=== PATIENT | female | born 1945 | race Caucasian/White ===

== ENCOUNTER 2017-08-09 05:55 | Day surgery (SDC) | payer MEDICARE ==
[~2017-08-09] VITALS: Ht 152.4 cm; Wt 57.2 kg
[~2017-08-09 05:55] MED LIST: ADVAIR DISK2 IN; ADVAIR HFA IN; AMLODIPINE BESYL5 MG PO; AMLODIPINE5 MG PO; ANORO ELLIPTA 61 AER IN; ASPIRIN CHEWABL81 MG PO; ATORVASTATIN CA40 MG PO; BENADRYL 50MG C50 MG PO; BENAZEPRIL5 MG PO; BONIVA150 MG PO; BUPROPION150 M1 PO; BUSPIRONE10 MG PO; CALCIUM CHEL1 CAP OR; CALCIUM PO; CARISOPRODOL350 MG PO; CELECOXIB200 MG; CEPHALEXIN500 MG OR; CEPHALEXIN500 MG PO; CIPRO500 MG OR; CIPROFLOXACN500 MG PO; CLONIDINE0.1 MG PO; COMBIVENT IN; COMBIVENT RESPIMAT IN; DALIRESP500 MCG PO; DIFLUCAN100 MG PO; DIFLUCAN150 MG PO; DOXY-CAPS100 MG OR; ELIMITE60 GM EX; FEXOFENADINE180 MG OR; FLEXERIL PO; FLUCONAZOLE100 MG PO; FLUTICASONE50 MCG; HYDROCHLOROT12.5 MG PO; HYDROCO/APAP1 TA9 PO; HYDROCODONE PO; HYDROCODONE/IBU1 TAB PO; IBU PO; IPRATROPIU0.5 MG/3 M NEB; KEFLEX500 MG PO; LEVAQUIN500 MG PO; LORTAB 1010 MG PO; LOSARTAN POT50 MG PO; MEDDOSEPAK OR; MEDDOSEPAK PO; NEXIUM20 M1 PO; NEXIUM40 M1 OR; ONDANSETRON4 MG PO; OXYCODONE5 M1 OR; OXYCODONE5 M1 PO; PREDNISONE10 MG PO; PREVPAC OR; PROVENTIL0.083 % IN; ROBITUSSIN10 ML PO; SPIRIVA IN; VICODIN1 TAB PO; VICOPROFEN PO; XANAX0.25 MG PO; XANAX0.5 MG PO; XIFAXAN200 MG OR; ZALEPLON5 MG PO; ZANTAC 150 PO; ZOFRAN ODT4 MG PO
[2017-08-09 09:36] VITALS: BP 144/75
== END 2017-08-09 08:23 | disposition home or self-care (01) ==
LOC: ORM 05:55
PROVIDERS: ATTEND Anesthesiology Pain Medicine
PROC: 3E0T33Z Introduction of Anti-inflammatory into Peripheral Nerves and Plexi, Percutaneous Approach (ICD-10-PCS; principal; 2017-08-09)
PROC: 3E0T3BZ Introduction of Anesthetic Agent into Peripheral Nerves and Plexi, Percutaneous Approach (ICD-10-PCS; 2017-08-09)
DX: M54.6 Pain in thoracic spine (principal); M54.5 Low back pain

== ENCOUNTER → 2017-08-23 | Day surgery (SDC) | payer MEDICARE ==
[2017-08-23 07:39] VITALS: BP 151/65
== END ==
LOC: ORM 06:00
PROVIDERS: ATTEND Anesthesiology Pain Medicine
PROC: 3E0T33Z Introduction of Anti-inflammatory into Peripheral Nerves and Plexi, Percutaneous Approach (ICD-10-PCS; principal; 2017-08-23)
PROC: 3E0T3BZ Introduction of Anesthetic Agent into Peripheral Nerves and Plexi, Percutaneous Approach (ICD-10-PCS; 2017-08-23)
DX: M54.6 Pain in thoracic spine (principal)

== ENCOUNTER 2017-09-13 07:34 | Day surgery (SDC) | payer MEDICARE ==
[~2017-09-13] VITALS: Ht 152.4 cm; Wt 55.3 kg
[2017-09-13] MEDS ORDERED: POTASSIUM GLUCONATE PO (07:52)
[2017-09-13] MEDS ORDERED: PREDNISONE10 MG PO (07:52)
[2017-09-13 09:42] VITALS: BP 136/69
== END 2017-09-13 10:20 | disposition home or self-care (01) ==
LOC: ORM 07:34
PROVIDERS: ATTEND Anesthesiology Pain Medicine
PROC: 01583ZZ Destruction of Thoracic Nerve, Percutaneous Approach (ICD-10-PCS; principal; 2017-09-13)
DX: M54.6 Pain in thoracic spine (principal); M12.9 Arthropathy, unspecified

== ENCOUNTER 2017-09-27 08:55 | Day surgery (SDC) | payer MEDICARE ==
[~2017-09-27] VITALS: Ht 152.4 cm; Wt 54.9 kg
[~2017-09-27 08:55] MED LIST changes: +POTASSIUM GLUCONATE PO
[2017-09-27 13:20] VITALS: BP 127/63
== END 2017-09-27 12:15 | disposition home or self-care (01) ==
LOC: ORM 08:55
PROVIDERS: ATTEND Anesthesiology Pain Medicine
PROC: 3E0T3TZ Introduction of Destructive Agent into Peripheral Nerves and Plexi, Percutaneous Approach (ICD-10-PCS; principal; 2017-09-27)
DX: M54.6 Pain in thoracic spine (principal); M12.9 Arthropathy, unspecified

== ENCOUNTER 2017-12-13 06:58 | Day surgery (SDC) | payer MEDICARE ==
[2017-12-13 09:49] VITALS: BP 208/96
== END 2017-12-13 09:20 | disposition home or self-care (01) ==
LOC: ORM 06:58
PROVIDERS: ATTEND Anesthesiology Pain Medicine
PROC: 3E0R33Z Introduction of Anti-inflammatory into Spinal Canal, Percutaneous Approach (ICD-10-PCS; principal; 2017-12-13)
PROC: B01B1ZZ Fluoroscopy of Spinal Cord using Low Osmolar Contrast (ICD-10-PCS; 2017-12-13)
DX: M51.16 Intervertebral disc disorders with radiculopathy, lumbar region (principal); M48.062 Spinal stenosis, lumbar region with neurogenic claudication
CPT/HCPCS: Q9967

== ENCOUNTER 2017-12-27 06:40 | Day surgery (SDC) | payer MEDICARE ==
[~2017-12-27] VITALS: Ht 152.4 cm; Wt 55.3 kg
[2017-12-27 08:43] VITALS: BP 144/65
[2018-01-09] MEDS ORDERED: SINGULAIR10 MG PO (07:59)
[2018-01-09] MEDS ORDERED: MYRBETRIQ25 MG (07:59)
== END 2017-12-27 09:15 | disposition home or self-care (01) ==
LOC: ORM 06:40
PROVIDERS: ATTEND Anesthesiology Pain Medicine
PROC: 3E0R33Z Introduction of Anti-inflammatory into Spinal Canal, Percutaneous Approach (ICD-10-PCS; principal; 2017-12-27)
DX: M51.16 Intervertebral disc disorders with radiculopathy, lumbar region (principal); M48.062 Spinal stenosis, lumbar region with neurogenic claudication; M54.5 Low back pain; M79.605 Pain in left leg
CPT/HCPCS: Q9967

== ENCOUNTER 2018-02-10 20:35 | Emergency (ER) | payer MEDICARE ==
[~2018-02-10] VITALS: Ht 152.4 cm; Wt 56.8 kg
[~2018-02-10 20:35] MED LIST changes: +MYRBETRIQ25 MG; +SINGULAIR10 MG PO
[2018-02-10 21:35] LABS: IMMATURE GRANULOCYTES 0.2 % (0.0-1.0); MEAN CELL VOLUME 93.1 fL CALC (80.0-100.0); MEAN CORPUSCULAR HGB 31.5 pG CALC (26.0-32.0); MEAN CORPUSCULAR HGB CONC 33.8 g/L CALC (32.0-36.0); NEUT# 3.98 thou/uL (2.00-7.15); RED BLOOD COUNT 4.19 mill/uL (4.20-5.60); RED CELL DISTRI WIDTH 12.9 % (11.5-15.5)
[2018-02-10 21:39] LABS: HEMOGLOBIN 13.2 g/dl (12.0-16.0)
[2018-02-10 21:42] LABS: URINE BILIRUBIN - DIPSTICK NEGATIVE (NEGATIVE); URINE BLOOD DIPSTICK NEGATIVE (NEGATIVE); URINE COLOR YELLOW; URINE GLUCOSE - DIPSTICK NEGATIVE (NEGATIVE); URINE KETONE NEGATIVE (NEGATIVE); URINE LEUK ESTERASE NEGATIVE (NEGATIVE); URINE NITRITE - DIPSTICK NEGATIVE (Negative); URINE PH 5.5 (4.5-8.0); URINE PROTEIN - DIPSTICK NEGATIVE (NEG-TRACE); URINE SPECIFIC GRAVITY >=1.030; URINE UROBILINOGEN - DIPSTICK 0.2 E.U./dL (0.2)
[2018-02-10 21:46] LABS: URINE CLARITY CLEAR
[2018-02-10 21:50] LABS: ALBUMIN 4.4 g/dL (3.2-5.0); ALKALINE PHOSPHATASE 62 u/l (38-126); ANION GAP 14 (6-22 (CALC)); BILIRUBIN, TOTAL 1.1 mg/dL (0.0-1.4); BUN 14 mg/dL (8-23); BUN/CREATININE RATIO 18 (12-20 (CALC)); CARBON DIOXIDE 24 mmol/l (22-30); CHLORIDE 105 mmol/l (95-108); CREATININE 0.8 mg/dL (0.5-1.0); GFR > 60 ML/MIN (>=60 (CALC)); GFR FOR AFR.AMER. > 60 ML/MIN (>=60 (CALC)); POTASSIUM 3.6 mmol/l (3.5-5.1); SGOT/AST 22 u/l (9-36); SGPT/ALT 34 u/l (11-66); SODIUM 140 mmol/l (137-146); TOTAL PROTEIN 7.4 g/dL (6.3-8.2)
[2018-02-10 22:02] LABS: MYOGLOBIN 54 ng/mL (0 - 62)
[2018-02-10 23:27] VITALS: BP 140/73
== END 2018-02-10 23:38 | disposition home or self-care (01) ==
LOC: ED 20:35
PROVIDERS: Emergency Medicine
DX: R60.0 Localized edema (principal); I10 Essential (primary) hypertension; M79.89 Other specified soft tissue disorders; M79.605 Pain in left leg; M79.604 Pain in right leg; R94.31 Abnormal electrocardiogram [ECG] [EKG]

== ENCOUNTER 2018-06-27 06:36 | Day surgery (SDC) | payer MEDICARE ==
[~2018-06-27] VITALS: Ht 152.4 cm; Wt 56.7 kg
[~2018-06-27 06:36] MED LIST changes: +COQ10100 MG PO; +KLOR-CON SPRINK8 MEQ PO; +MAGNESIUM250 M1 PO; +PREDNISONE20 MG PO; +TIZANIDINE2 MG PO; +TRAZODONE HCL100 MG PO
[2018-06-27 08:31] VITALS: BP 125/57
== END 2018-06-27 08:45 | disposition home or self-care (01) ==
LOC: ENDO 06:36 → ORM 09:30 → ENDO 09:30
PROVIDERS: ATTEND Surgery
PROC: 0DBL8ZX Excision of Transverse Colon, Via Natural or Artificial Opening Endoscopic, Diagnostic (ICD-10-PCS; principal; 2018-06-27)
DX: R19.5 Other fecal abnormalities (principal); K59.00 Constipation, unspecified; K63.5 Polyp of colon; K57.30 Diverticulosis of large intestine without perforation or abscess without bleeding

== ENCOUNTER 2018-10-10 21:01 | Emergency (ER) | payer MEDICARE ==
[~2018-10-10] VITALS: Ht 152.4 cm; Wt 56.0 kg
[2018-10-10 21:46] LABS: IMMATURE GRANULOCYTES 0.9 % (0.0-5.0); MEAN CORPUSCULAR HGB 30.6 pG CALC (26.0-32.0); MEAN CORPUSCULAR HGB CONC 33.3 g/L CALC (32.0-36.0); NEUT# 9.38 thou/uL (2.00-7.15); RED BLOOD COUNT 4.9 mill/uL (4.20-5.60); RED CELL DISTRI WIDTH 12.3 % (11.5-15.5)
[2018-10-10 21:48] LABS: HEMATOCRIT 45.1 % (37.0-47.0)
[2018-10-10 21:59] LABS: ALBUMIN 4.6 g/dL (3.2-5.0); BILIRUBIN, TOTAL 0.7 mg/dL (0.0-1.4); CREATININE 1.1 mg/dL (0.5-1.0); POTASSIUM 3.9 mmol/l (3.5-5.1); TOTAL PROTEIN 7.2 g/dL (6.3-8.2)
[2018-10-10] MEDS ORDERED: PHENERGAN25 MG/TAB PO (23:54)
[2018-10-10 23:58] LABS: URINE BILIRUBIN - DIPSTICK NEGATIVE (NEGATIVE); URINE BLOOD DIPSTICK NEGATIVE (NEGATIVE); URINE COLOR YELLOW; URINE GLUCOSE - DIPSTICK NEGATIVE (NEGATIVE); URINE KETONE NEGATIVE (NEGATIVE); URINE LEUK ESTERASE NEGATIVE (NEGATIVE); URINE NITRITE - DIPSTICK NEGATIVE (Negative); URINE PROTEIN - DIPSTICK NEGATIVE (NEG-TRACE); URINE UROBILINOGEN - DIPSTICK 0.2 E.U./dL (0.2)
[2018-10-11 00:10] VITALS: BP 150/73
== END 2018-10-11 00:19 | disposition home or self-care (01) ==
LOC: ED 21:01
PROVIDERS: Family Medicine
DX: K85.90 Acute pancreatitis without necrosis or infection, unspecified (principal); I10 Essential (primary) hypertension; K74.60 Unspecified cirrhosis of liver; B19.20 Unspecified viral hepatitis C without hepatic coma
CPT/HCPCS: J0131; S0164

== ENCOUNTER → 2018-10-30 | Outpatient (REF) | payer MEDICARE ==
[~2018-10-30] MED LIST changes: +AUGMENTIN500TAB PO; +PHENERGAN25 MG/TAB PO; +TORADOL PO
== END | disposition home or self-care (01) ==
LOC: DI 08:49
PROVIDERS: ATTEND Orthopaedic Surgery
DX: M25.511 Pain in right shoulder (principal)

== ENCOUNTER → 2018-11-06 | Outpatient (REF) | payer MEDICARE | END | disposition home or self-care (01) | LOC: MAMMO 09:21 | PROVIDERS: ATTEND Nurse Practitioner Family | DX: Z12.31 Encounter for screening mammogram for malignant neoplasm of breast (principal) ==

== ENCOUNTER → 2018-11-15 | Outpatient (REF) | payer MEDICARE | END | disposition home or self-care (01) | LOC: BD 09:00 | PROVIDERS: ATTEND Nurse Practitioner Family | DX: N95.1 Menopausal and female climacteric states (principal) ==

== ENCOUNTER 2018-11-24 09:47 | Emergency (ER) | payer MEDICARE ==
[~2018-11-24] VITALS: Ht 152.4 cm; Wt 55.0 kg
[~2018-11-24 09:47] MED LIST changes: -AUGMENTIN500TAB PO; -TORADOL PO
[2018-11-24] MEDS ORDERED: DALIRESP500 MCG PO (10:03)
[2018-11-24 10:14] LABS: HEMATOCRIT 41.4 % (37.0-47.0); HEMOGLOBIN 13.9 g/dl (12.0-16.0); IMMATURE GRANULOCYTES 0.2 % (0.0-5.0); MEAN CELL VOLUME 91.2 fL CALC (80.0-100.0); MEAN CORPUSCULAR HGB 30.6 pG CALC (26.0-32.0); MEAN CORPUSCULAR HGB CONC 33.6 g/L CALC (32.0-36.0); NEUT# 6.05 thou/uL (2.00-7.15); RED BLOOD COUNT 4.54 mill/uL (4.20-5.60); RED CELL DISTRI WIDTH 12.6 % (11.5-15.5)
[2018-11-24 10:26] LABS: ALBUMIN 4.4 g/dL (3.2-5.0); ALKALINE PHOSPHATASE 70 u/l (38-126); ANION GAP 15 (6-22 (CALC)); BILIRUBIN, TOTAL 1.1 mg/dL (0.0-1.4); BUN 12 mg/dL (8-23); BUN/CREATININE RATIO 14 (12-20 (CALC)); CARBON DIOXIDE 23 mmol/l (22-30); CHLORIDE 106 mmol/l (95-108); CREATININE 0.8 mg/dL (0.5-1.0); GFR > 60 ML/MIN (>=60 (CALC)); GFR FOR AFR.AMER. > 60 ML/MIN (>=60 (CALC)); POTASSIUM 4.2 mmol/l (3.5-5.1); SGOT/AST 19 u/l (9-36); SODIUM 140 mmol/l (137-146); TOTAL PROTEIN 7.2 g/dL (6.3-8.2)
[2018-11-24 11:20] LABS: URINE BILIRUBIN - DIPSTICK NEGATIVE (NEGATIVE); URINE BLOOD DIPSTICK TRACE-LYSED (NEGATIVE); URINE COLOR YELLOW; URINE GLUCOSE - DIPSTICK NEGATIVE (NEGATIVE); URINE KETONE NEGATIVE (NEGATIVE); URINE PROTEIN - DIPSTICK NEGATIVE (NEG-TRACE); URINE SPECIFIC GRAVITY <=1.005; URINE UROBILINOGEN - DIPSTICK 0.2 E.U./dL (0.2)
[2018-11-24 11:30] LABS: URINE LEUK ESTERASE MODERATE (NEGATIVE); URINE NITRITE - DIPSTICK POSITIVE (Negative)
[2018-11-24 11:36] LABS: URINE BACTERIA MODERATE hpf; URINE SQUAMOUS EPITHELIAL CELL FEW EPI/hpf (0-FEW); URINE WBC 20-50 WBC/hpf (0-5)
[2018-11-24] MEDS ORDERED: AUGMENTIN500TAB PO (11:58)
[2018-11-24] MEDS ORDERED: TORADOL PO (11:58)
[2018-11-24 12:34] VITALS: BP 159/80
== END 2018-11-24 12:34 | disposition home or self-care (01) ==
LOC: ED 09:47
PROVIDERS: Emergency Medicine
DX: K57.32 Diverticulitis of large intestine without perforation or abscess without bleeding (principal); N39.0 Urinary tract infection, site not specified; B96.1 Klebsiella pneumoniae [K. pneumoniae] as the cause of diseases classified elsewhere; N20.0 Calculus of kidney; K74.60 Unspecified cirrhosis of liver; K44.9 Diaphragmatic hernia without obstruction or gangrene; I10 Essential (primary) hypertension

== ENCOUNTER 2020-04-04 09:53 | Observation (INO) | payer MEDICARE ==
[~2020-04-04] VITALS: Ht 154.9 cm; Wt 56.7 kg
[~2020-04-04 09:53] MED LIST changes: +AUGMENTIN500TAB PO; +PROLIA60 MG/ML SC; +TORADOL PO
[2020-04-04 10:43] LABS: HEMATOCRIT 39.6 % (37.0-47.0); IMMATURE GRANULOCYTES 0.3 % (0.0-5.0); MEAN CELL VOLUME 91.7 fL CALC (80.0-100.0); MEAN CORPUSCULAR HGB 30.1 pG CALC (26.0-32.0); MEAN CORPUSCULAR HGB CONC 32.8 g/dL CAL (32.0-36.0); NEUT# 4.51 thou/uL (2.00-7.15); RED BLOOD COUNT 4.32 mill/uL (4.20-5.60); RED CELL DISTRI WIDTH 11.9 % (11.5-15.5)
[2020-04-04 10:59] LABS: ACT PARTIAL THROMBO TIME 25.4 SECONDS (20.0-32.5); PROTHROMBIN TIME 9.9 SECONDS (9.0-12.5)
[2020-04-04 11:00] LABS: ALBUMIN 4.1 g/dL (3.2-5.0); ALKALINE PHOSPHATASE 63 u/l (38-126); ANION GAP 10 (6-22 (CALC)); BILIRUBIN, TOTAL 0.9 mg/dL (0.0-1.4); BUN 17 mg/dL (8-23); BUN/CREATININE RATIO 18 (12-20 (CALC)); CARBON DIOXIDE 26 mmol/l (22-30); CHLORIDE 105 mmol/l (95-108); CREATININE 0.9 mg/dL (0.5-1.0); GFR > 60 ML/MIN (>=60 (CALC)); GFR FOR AFR.AMER. > 60 ML/MIN (>=60 (CALC)); LIPASE 144 u/l (23-300); POTASSIUM 3.8 mmol/l (3.5-5.1); SGOT/AST 20 u/l (9-36); SODIUM 137 mmol/l (137-146)
[2020-04-04 11:36] LABS: URINE BILIRUBIN - DIPSTICK NEGATIVE (NEGATIVE); URINE BLOOD DIPSTICK LARGE (NEGATIVE); URINE COLOR YELLOW; URINE GLUCOSE - DIPSTICK NEGATIVE (NEGATIVE); URINE KETONE NEGATIVE (NEGATIVE); URINE LEUK ESTERASE TRACE (NEGATIVE); URINE NITRITE - DIPSTICK NEGATIVE (Negative); URINE PH 6.5 (4.5-8.0); URINE PROTEIN - DIPSTICK NEGATIVE (NEG-TRACE); URINE SPECIFIC GRAVITY 1.015; URINE UROBILINOGEN - DIPSTICK 0.2 E.U./dL (0.2)
[2020-04-04 11:37] LABS: URINE EPITHELIAL CELLS FEW EPI/hpf (0-FEW); URINE WBC 0-2 WBC/hpf (0-5)
[2020-04-04] MEDS ORDERED: ELIQUIS2.5 MG (13:19)
[2020-04-04] MEDS ORDERED: MYRBETRIQ25 MG (13:24)
[2020-04-04 15:08] VITALS: BP 149/59
[2020-04-04 18:49] VITALS: BP 157/89
[2020-04-04 20:46] VITALS: BP 139/77
[2020-04-04 22:08] LABS: HEMOGLOBIN 11.2 g/dl (12.0-16.0)
[2020-04-04 22:50] LABS: HEMATOCRIT 33.5 % (37.0-47.0)
[2020-04-05 00:11] VITALS: BP 150/82
[2020-04-05 03:50] VITALS: BP 163/79
[2020-04-05 04:50] LABS: HEMATOCRIT 32.7 % (37.0-47.0); HEMOGLOBIN 10.6 g/dl (12.0-16.0); IMMATURE GRANULOCYTES 0.2 % (0.0-5.0); MEAN CELL VOLUME 92.4 fL CALC (80.0-100.0); MEAN CORPUSCULAR HGB 29.9 pG CALC (26.0-32.0); MEAN CORPUSCULAR HGB CONC 32.4 g/dL CAL (32.0-36.0); NEUT# 3.36 thou/uL (2.00-7.15); RED BLOOD COUNT 3.54 mill/uL (4.20-5.60); RED CELL DISTRI WIDTH 11.9 % (11.5-15.5)
[2020-04-05 05:11] LABS: ANION GAP 6 (6-22 (CALC)); BUN 12 mg/dL (8-23); BUN/CREATININE RATIO 15 (12-20 (CALC)); CARBON DIOXIDE 27 mmol/l (22-30); CHLORIDE 108 mmol/l (95-108); CREATININE 0.8 mg/dL (0.5-1.0); GFR > 60 ML/MIN (>=60 (CALC)); GFR FOR AFR.AMER. > 60 ML/MIN (>=60 (CALC)); POTASSIUM 3.8 mmol/l (3.5-5.1); SODIUM 137 mmol/l (137-146)
[2020-04-05 07:11] VITALS: BP 174/89
[2020-04-05 11:40] VITALS: BP 124/55
== END 2020-04-05 13:15 | disposition short-term general hospital (02) ==
LOC: ED 09:53 → ED-I 12:39 → ED 12:58 → ED-I 12:59 → MS2 12:59
PROVIDERS: ADMIT Internal Medicine; ATTEND Internal Medicine
DX: K92.1 Melena (principal); I48.91 Unspecified atrial fibrillation; R71.0 Precipitous drop in hematocrit; K74.60 Unspecified cirrhosis of liver; I10 Essential (primary) hypertension; J44.9 Chronic obstructive pulmonary disease, unspecified; B19.20 Unspecified viral hepatitis C without hepatic coma; F32.9 Major depressive disorder, single episode, unspecified; Z87.891 Personal history of nicotine dependence; Z79.01 Long term (current) use of anticoagulants; Z11.59 Encounter for screening for other viral diseases
CPT/HCPCS: G0378; Q9967; S0164

== ENCOUNTER 2022-04-05 21:38 | Emergency (ER) | payer MEDICARE ==
[2022-04-05] VITALS (24 sets, daily range): BP systolic 115–232; BP diastolic 55–115
[~2022-04-05] VITALS: Ht 154.9 cm; Wt 54.5 kg
[~2022-04-05 21:38] MED LIST changes: +COZAAR25 MG PO; +DESYREL50 MG PO; +ELIQUIS2.5 MG; -TRAZODONE HCL100 MG PO
[2022-04-05 22:05] LABS: IMMATURE GRANULOCYTES 0.6 % (0.0-5.0); MEAN CELL VOLUME 89.2 fL CALC (80.0-100.0); MEAN CORPUSCULAR HGB 30.2 pG CALC (26.0-32.0); MEAN CORPUSCULAR HGB CONC 33.9 g/dL CAL (32.0-36.0); NEUT# 5.59 thou/uL (2.00-7.15); RED BLOOD COUNT 4.73 mill/uL (4.20-5.60); RED CELL DISTRI WIDTH 12.2 % (11.5-15.5)
[2022-04-05 22:06] LABS: HEMATOCRIT 42.2 % (37.0-47.0); HEMOGLOBIN 14.3 g/dl (12.0-16.0)
[2022-04-05 22:21] LABS: ALBUMIN 4.3 g/dL (3.2-5.0); ALKALINE PHOSPHATASE 61 u/l (38-126); ANION GAP 13 (6-22 (CALC)); BUN 22 mg/dL (8-23); BUN/CREATININE RATIO 24 (12-20 (CALC)); CARBON DIOXIDE 27 mmol/l (22-30); CHLORIDE 103 mmol/l (95-108); CREATININE 0.9 mg/dL (0.5-1.0); GFR FOR AFR.AMER. > 60 ML/MIN (>=60 (CALC)); GFR OTHER RACES > 60 ML/MIN (>=60 (CALC)); POTASSIUM 3.5 mmol/l (3.5-5.1); SGOT/AST 18 u/l (9-36); SODIUM 139 mmol/l (137-146); TOTAL PROTEIN 7.3 g/dL (6.3-8.2)
[2022-04-05 22:33] LABS: MYOGLOBIN 38 ng/mL (0 - 62)
[2022-04-05 22:38] LABS: BILIRUBIN, TOTAL 0.5 mg/dL (0.0-1.4)
[2022-04-06 00:05] VITALS: BP 112/57
[2022-04-06 00:11] VITALS: BP 106/50
[2022-04-06 00:15] VITALS: BP 100/47
[2022-04-06] MEDS ORDERED: CARDIZEM CD240 MG PO (00:20)
[2022-04-06 00:24] VITALS: BP 100/47
[2022-04-06] MEDS ORDERED: ASPIRIN81 MG PO (14:10)
[2022-04-06] MEDS ORDERED: PANTOPRAZOLE SO40 M3 PO (14:11)
[2022-04-06] MEDS ORDERED: TRELEGY ELLIPTA1 AE1 IN (14:12)
[2022-04-06] MEDS ORDERED: ARICEPT PO (14:40)
[2022-04-06] MEDS ORDERED: LORTAB 5/3255 MG PO (16:40)
[2022-04-08] MEDS ORDERED: ATORVASTATIN CA40 MG PO (18:29)
[2022-04-08] MEDS ORDERED: PLAVIX75 MG PO (18:29)
[2022-04-08] MEDS ORDERED: VITAMIN B-121000 MC1 SL (18:31)
[2022-04-08] MEDS ORDERED: VITAMIN D350000 UNIT PO (18:31)
[2022-04-08] MEDS ORDERED: CLONIDINE0.1 MG PO (18:36)
== END 2022-04-06 00:40 | disposition home or self-care (01) ==
LOC: ED 21:38
PROVIDERS: Family Medicine
DX: I10 Essential (primary) hypertension (principal); K74.60 Unspecified cirrhosis of liver; B19.20 Unspecified viral hepatitis C without hepatic coma; Z20.822 Contact with and (suspected) exposure to COVID-19
CPT/HCPCS: J2060

== ENCOUNTER 2022-05-10 05:00 | Emergency (ER) | payer MEDICARE ==
[~2022-05-10] VITALS: Ht 154.9 cm; Wt 53.2 kg
[2022-05-10] VITALS (9 sets, daily range): BP systolic 126–147; BP diastolic 56–72
[~2022-05-10 05:00] MED LIST changes: +ARICEPT PO; +ASPIRIN81 MG PO; +CARDIZEM CD240 MG PO; +LORTAB 5/3255 MG PO; +PANTOPRAZOLE SO40 M3 PO; +PLAVIX75 MG PO; +TRELEGY ELLIPTA1 AE1 IN; +VITAMIN B-121000 MC1 SL; +VITAMIN D350000 UNIT PO
[2022-05-10 05:40] LABS: HEMATOCRIT 39.6 % (37.0-47.0); HEMOGLOBIN 13.2 g/dl (12.0-16.0); IMMATURE GRANULOCYTES 0.2 % (0.0-5.0); MEAN CELL VOLUME 88.6 fL CALC (80.0-100.0); MEAN CORPUSCULAR HGB 29.5 pG CALC (26.0-32.0); MEAN CORPUSCULAR HGB CONC 33.3 g/dL CAL (32.0-36.0); NEUT# 3.01 thou/uL (2.00-7.15); RED BLOOD COUNT 4.47 mill/uL (4.20-5.60); RED CELL DISTRI WIDTH 12.4 % (11.5-15.5)
[2022-05-10] MEDS ORDERED: LOSARTAN POTASS50 MG PO (05:55)
[2022-05-10 06:02] LABS: ALBUMIN 4.2 g/dL (3.2-5.0); ALKALINE PHOSPHATASE 66 u/l (38-126); ANION GAP 14 (6-22 (CALC)); BILIRUBIN, TOTAL 1.2 mg/dL (0.0-1.4); BUN 13 mg/dL (8-23); BUN/CREATININE RATIO 17 (12-20 (CALC)); CARBON DIOXIDE 26 mmol/l (22-30); CHLORIDE 106 mmol/l (95-108); CREATININE 0.8 mg/dL (0.5-1.0); D-DIMER 0.37 mg/L (0.19-0.60); GFR FOR AFR.AMER. > 60 ML/MIN (>=60 (CALC)); GFR OTHER RACES > 60 ML/MIN (>=60 (CALC)); POTASSIUM 3.5 mmol/l (3.5-5.1); SGOT/AST 21 u/l (9-36); SODIUM 141 mmol/l (137-146); TOTAL PROTEIN 6.9 g/dL (6.3-8.2)
[2022-05-10 06:08] LABS: ACT PARTIAL THROMBO TIME 22.1 SECONDS (20.0-32.5); PROTHROMBIN TIME 10.1 SECONDS (9.0-12.5)
[2022-05-10 06:14] LABS: MYOGLOBIN 57 ng/mL (0 - 62)
[2022-05-10] MEDS ORDERED: AMLODIPINE BESYL5 MG PO (06:49)
== END 2022-05-10 06:51 | disposition home or self-care (01) ==
LOC: ED 05:00
PROVIDERS: Family Medicine
DX: I10 Essential (primary) hypertension (principal); J44.9 Chronic obstructive pulmonary disease, unspecified; K74.60 Unspecified cirrhosis of liver; B19.20 Unspecified viral hepatitis C without hepatic coma; Z86.73 Personal history of transient ischemic attack (TIA), and cerebral infarction without residual deficits

== ENCOUNTER 2023-01-05 22:19 | Emergency (ER) | payer MEDICARE ==
[2023-01-05] VITALS (9 sets, daily range): BP systolic 120–220; BP diastolic 47–82
[~2023-01-05] VITALS: Ht 154.9 cm; Wt 107.0 kg
[~2023-01-05 22:19] MED LIST changes: +LOSARTAN POTASS50 MG PO
== END 2023-01-06 00:02 | disposition home or self-care (01) ==
LOC: ED 22:19
DX: T43.211A Poisoning by selective serotonin and norepinephrine reuptake inhibitors, accidental (unintentional), initial encounter (principal); I10 Essential (primary) hypertension; J44.9 Chronic obstructive pulmonary disease, unspecified; K74.60 Unspecified cirrhosis of liver; B19.20 Unspecified viral hepatitis C without hepatic coma; Z86.73 Personal history of transient ischemic attack (TIA), and cerebral infarction without residual deficits

== ENCOUNTER 2023-02-17 18:10 | Emergency (ER) | payer MEDICARE ==
[~2023-02-17] VITALS: Ht 152.4 cm; Wt 48.0 kg
[2023-02-17 18:36] VITALS: BP 155/64
[2023-02-17 18:45] VITALS: BP 187/71
[2023-02-17 18:50] VITALS: BP 169/104
[2023-02-17 18:51] VITALS: BP 158/59
[2023-02-17 20:16] VITALS: BP 158/59
== END 2023-02-17 20:17 | disposition home or self-care (01) ==
LOC: ED 18:10
DX: S82.54XA Nondisplaced fracture of medial malleolus of right tibia, initial encounter for closed fracture (principal); I10 Essential (primary) hypertension; J44.9 Chronic obstructive pulmonary disease, unspecified; K74.60 Unspecified cirrhosis of liver; B19.20 Unspecified viral hepatitis C without hepatic coma; W20.8XXA Other cause of strike by thrown, projected or falling object, initial encounter; Y92.009 Unspecified place in unspecified non-institutional (private) residence as the place of occurrence of the external cause; Z86.73 Personal history of transient ischemic attack (TIA), and cerebral infarction without residual deficits

== ENCOUNTER 2024-09-07 08:13 | Emergency (ER) | payer MEDICARE ==
[2024-09-07] VITALS (23 sets, daily range): BP systolic 131–224; BP diastolic 71–122
[~2024-09-07] VITALS: Ht 152.4 cm; Wt 48.5 kg
[~2024-09-07 08:13] MED LIST changes: +ZOFRAN4 MG/TAB PO
[2024-09-07] MEDS ORDERED: HYDROmorphone HCL 2 MG/AMP IV ONE (08:55)
[2024-09-07] MEDS ORDERED: METOPROLOL TARTRATE 5 MG/5 ML VIAL IV ONE (11:15)
[2024-09-07] MEDS ORDERED: PROPOFOL 200 MG/20 ML VIAL IV ONE (14:05)
== END 2024-09-07 11:58 | disposition home or self-care (01) ==
LOC: ED 08:13
PROC: 0RSJXZZ Reposition Right Shoulder Joint, External Approach (ICD-10-PCS; principal; 2024-09-07)
DX: S43.014A Anterior dislocation of right humerus, initial encounter (principal); I10 Essential (primary) hypertension; J44.9 Chronic obstructive pulmonary disease, unspecified; W01.0XXA Fall on same level from slipping, tripping and stumbling without subsequent striking against object, initial encounter; Z86.73 Personal history of transient ischemic attack (TIA), and cerebral infarction without residual deficits; Z20.822 Contact with and (suspected) exposure to COVID-19
CPT/HCPCS: J1171